=== PATIENT | male | born 1935 | race Caucasian/White ===

== ENCOUNTER 2021-06-06 20:07 | Inpatient (IN) ==
[2021-06-06 20:45] LABS: PCO2 Arterial 35 mmHg (35-45)
[2021-06-06 21:10] LABS: Hematocrit 36 % (42-52); Hemoglobin 11.7 g/dL (14.0-18.0); Mean Corpuscular HGB Conc 33 g/dL (31-36); Mean Corpuscular Hemoglobin 26 pg (27-31); Mean Corpuscular Volume 80 fL (80-94); Mean Platelet Volume 7.7 fL (7.4-10.4); Platelet Count 598 10^3/uL (150-450); Red Blood Count 4.44 10^6 /uL (4.18-5.48); Red Cell Distribution Width 18 % (10-15); White Blood Count 24.9 10^3/uL (3.5-10.8)
[2021-06-06 21:21] LABS: PO2 Arterial 59 mmHg (80-100)
[2021-06-06 21:27] LABS: ALT 25 U/L (7-52); AST 33 U/L (13-39); Albumin 3.5 g/dL (3.2-5.2); Albumin/Globulin Ratio 0.8 (1-3); Alkaline Phosphatase 87 U/L (35-149); Anion Gap 11 mmol/L (2-11); Blood Urea Nitrogen 31 mg/dL (6-24); CO2 Carbon Dioxide 27 mmol/L (22-32); Calcium 9.9 mg/dL (8.6-10.3); Chloride 98 mmol/L (101-111); Globulin 4.6 g/dL (2-4); Glucose 119 mg/dL (70-100); Sodium 136 mmol/L (135-145); Total Protein 8.1 g/dL (6.4-8.9)
[2021-06-06 21:30] LABS: Activated Partial Thrombo Time 29.3 seconds (26.0-38.0); INR 1.34 (0.86-1.15)
[2021-06-06] MEDS ORDERED: Vancomycin 1,000 MG in NS 0.9% 250 ml 250 ML IVPB ONE ×2 (21:35→23:40)
[2021-06-06] MEDS ORDERED: Piperacillin/Tazobac ADVAN 3.375 GM in NS 0.9% 100 ml BAG 100 ML IV ONE ×2 (21:35→23:40)
[2021-06-06] MEDS ORDERED: Lactated Ringers 1000 ml BAG 1,000 ML IV ONE (21:36)
[2021-06-06 21:43] LABS: Influenza A Molecular Negative (Negative); Influenza B Molecular Negative (Negative); Rapid COVID-19 Molecular Undetected (Undetected)
[2021-06-06] MEDS ORDERED: Lactated Ringers 1000 ml BAG IV.FLUID IV ONE (21:44)
[2021-06-06 21:48] LABS: ABS Lymphocytes 0.8 10^3/ul (1.0-4.8); ABS Monocytes 0.9 10^3/ul (0-0.8); ABS Neutrophils 23.2 10^3/ul (1.5-7.7); Eosinophil % 0.1 %; Lymphocyte % 3.2 %
[2021-06-06 21:53] LABS: Troponin I 0.06 ng/mL (<0.03)
[2021-06-06] MEDS ORDERED: Vancomycin per Pharmacy 1 EA NOTE FOLLOW UP SCH (23:45)
[2021-06-06] MEDS ORDERED: Zosyn per Pharmacy NOTE FOLLOW UP SCH (23:45)
[2021-06-07] MEDS ORDERED: Albuterol HFA INHALER 8 gm MDI INH PRN (01:31)
[2021-06-07 01:53] LABS: Blood Urea Nitrogen 29 mg/dL (6-24)
[2021-06-07 02:07] LABS: Troponin I 0.12 ng/mL (<0.03)
[2021-06-07] MEDS: ZOSYN 3.375 GM Q8H per EXTENDED INFUSION IV SCH ×3 (03:16→18:31)
[2021-06-07 04:51] LABS: Hematocrit 28 % (42-52); Hemoglobin 9.4 g/dL (14.0-18.0); Mean Corpuscular HGB Conc 34 g/dL (31-36); Mean Corpuscular Hemoglobin 27 pg (27-31); Mean Corpuscular Volume 79 fL (80-94); Mean Platelet Volume 7.7 fL (7.4-10.4); Platelet Count 479 10^3/uL (150-450); Red Blood Count 3.51 10^6 /uL (4.18-5.48); Red Cell Distribution Width 18 % (10-15); White Blood Count 33.3 10^3/uL (3.5-10.8)
[2021-06-07 04:58] LABS: ABS Basophils 0.3 10^3/ul (0-0.2); ABS Lymphocytes 0.8 10^3/ul (1.0-4.8); ABS Monocytes 1.1 10^3/ul (0-0.8); ABS Neutrophils 31.1 10^3/ul (1.5-7.7); Lymphocyte % 2.4 %
[2021-06-07 05:49] LABS: Troponin I 0.08 ng/mL (<0.03)
[2021-06-07 05:52] LABS: INR 1.48 (0.86-1.15)
[2021-06-07 06:01] LABS: Calcium 8.8 mg/dL (8.6-10.3); Potassium 4.1 mmol/L (3.5-5.0)
[2021-06-07] MEDS: Heparin 5000 UNITS/ML 1 mL VIAL SUBCUT SCH ×3 (06:52→22:14)
[2021-06-07 07:42] LABS: Urine Appearance Turbid; Urine Bilirubin Negative (Negative); Urine Blood 1+ (Negative); Urine Color Amber; Urine Glucose Negative (Negative); Urine Ketones Negative (Negative); Urine Nitrite Positive (Negative); Urine Protein 1+(30 mg/dL) (Negative); Urine Specific Gravity 1.025 (1.002-1.030); Urine Urobilinogen Negative (Negative)
[2021-06-07 07:46] LABS: Urine Amorphous Crystals Present (Absent); Urine Bacteria 1+ (Absent); Urine Red Blood Cell 3+(>10/hpf) (Absent); Urine White Blood Cell 3+(>20/hpf) (Absent)
[2021-06-07] MEDS ORDERED: Linezolid 600 MG IVPREMIX(*) 600 MG/300 ML BAG IVPB SCH (09:00)
[2021-06-07] MEDS ORDERED: methylPREDNISolone SOD 40 mg/ml 1 ml VIAL IV SCH (10:00)
[2021-06-07] MEDS ORDERED: Lactated Ringers 500 ml BAG 500 ML IV ONE (15:53)
[2021-06-07] MEDS ORDERED: NS 0.9% 500 ml BAG 500 ML IV ONE (18:22)
[2021-06-07] MEDS: Linezolid 600 MG IVPREMIX(*) 600 MG/300 ML BAG IVPB SCH (23:43)
[2021-06-08] MEDS: ZOSYN 3.375 GM Q8H per EXTENDED INFUSION IV SCH ×3 (01:15→16:44)
[2021-06-08 05:33] LABS: ABS Basophils 0.2 10^3/ul (0-0.2); ABS Lymphocytes 0.8 10^3/ul (1.0-4.8); ABS Monocytes 0.8 10^3/ul (0-0.8); ABS Neutrophils 13.2 10^3/ul (1.5-7.7); Hematocrit 30 % (42-52); Hemoglobin 9.7 g/dL (14.0-18.0); Mean Corpuscular HGB Conc 33 g/dL (31-36); Mean Corpuscular Hemoglobin 26 pg (27-31); Mean Corpuscular Volume 80 fL (80-94); Mean Platelet Volume 7.9 fL (7.4-10.4); Platelet Count 512 10^3/uL (150-450); Red Blood Count 3.69 10^6 /uL (4.18-5.48); Red Cell Distribution Width 18 % (10-15); White Blood Count 14.9 10^3/uL (3.5-10.8)
[2021-06-08 05:51] LABS: Calcium 8.8 mg/dL (8.6-10.3); Magnesium 2.1 mg/dL (1.9-2.7); Potassium 4.3 mmol/L (3.5-5.0)
[2021-06-08] MEDS: Heparin 5000 UNITS/ML 1 mL VIAL SUBCUT SCH (05:56)
[2021-06-08] MEDS ORDERED: Levothyroxine 100 MCG/5 ML VIAL IV SCH (06:00)
[2021-06-08] MEDS ORDERED: methylPREDNISolone SOD 40 mg/ml 1 ml VIAL IV SCH (09:00)
[2021-06-08] MEDS: Enoxaparin 40 MG/0.4 ML SYR SUBCUT SCH (10:00)
[2021-06-08] MEDS: Linezolid 600 MG IVPREMIX(*) 600 MG/300 ML BAG IVPB SCH ×2 (11:29→11:53)
[2021-06-09] MEDS: ZOSYN 3.375 GM Q8H per EXTENDED INFUSION IV SCH ×3 (02:42→18:23)
[2021-06-09 06:38] LABS: ABS Lymphocytes 0.6 10^3/ul (1.0-4.8); ABS Monocytes 0.8 10^3/ul (0-0.8); ABS Neutrophils 5.8 10^3/ul (1.5-7.7); Eosinophil % 0.1 %; Hematocrit 27 % (42-52); Hemoglobin 8.9 g/dL (14.0-18.0); Lymphocyte % 8.8 %; Mean Corpuscular HGB Conc 33 g/dL (31-36); Mean Corpuscular Hemoglobin 27 pg (27-31); Mean Corpuscular Volume 80 fL (80-94); Mean Platelet Volume 7.7 fL (7.4-10.4); Platelet Count 476 10^3/uL (150-450); Red Blood Count 3.34 10^6 /uL (4.18-5.48); Red Cell Distribution Width 17 % (10-15); White Blood Count 7.2 10^3/uL (3.5-10.8)
[2021-06-09 07:02] LABS: Calcium 8.3 mg/dL (8.6-10.3); Potassium 3.6 mmol/L (3.5-5.0)
[2021-06-09] MEDS: Enoxaparin 40 MG/0.4 ML SYR SUBCUT SCH (09:27)
[2021-06-10] MEDS: ZOSYN 3.375 GM Q8H per EXTENDED INFUSION IV SCH ×3 (01:43→18:02)
[2021-06-10 08:24] LABS: ABS Eosinophils 0.1 10^3/ul (0-0.6); ABS Lymphocytes 0.9 10^3/ul (1.0-4.8); ABS Monocytes 0.7 10^3/ul (0-0.8); ABS Neutrophils 5.6 10^3/ul (1.5-7.7); Eosinophil % 0.7 %; Hematocrit 30 % (42-52); Hemoglobin 9.9 g/dL (14.0-18.0); Lymphocyte % 12.3 %; Mean Corpuscular HGB Conc 33 g/dL (31-36); Mean Corpuscular Hemoglobin 26 pg (27-31); Mean Corpuscular Volume 80 fL (80-94); Mean Platelet Volume 7.5 fL (7.4-10.4); Platelet Count 541 10^3/uL (150-450); Red Blood Count 3.77 10^6 /uL (4.18-5.48); Red Cell Distribution Width 17 % (10-15); White Blood Count 7.2 10^3/uL (3.5-10.8)
[2021-06-10 08:40] LABS: Calcium 8.5 mg/dL (8.6-10.3); Magnesium 2.1 mg/dL (1.9-2.7); Potassium 4.5 mmol/L (3.5-5.0)
[2021-06-10] MEDS: Enoxaparin 40 MG/0.4 ML SYR SUBCUT SCH (09:13)
[2021-06-11] MEDS: ZOSYN 3.375 GM Q8H per EXTENDED INFUSION IV SCH ×2 (01:37→08:53)
[2021-06-11] MEDS: Enoxaparin 40 MG/0.4 ML SYR SUBCUT SCH (08:53)
[2021-06-11] MEDS ORDERED: Amoxicillin/Clavul 875/125 TAB (Augmentin 875 tab) PO SCH (12:00)
[2021-06-11 12:48] VITALS: BP 104/57
[2021-06-11 14:01] LABS: Rapid COVID-19 Molecular Undetected (Undetected)
[2021-06-11] MEDS ORDERED: Amoxicillin/Clavul ORALSYR 80 MG/ML (400 MG/5 ML) PO SCH (21:00)
== END 2021-06-11 15:00 | DRG 871 ==
LOC: ED 20:07 → ICU 23:24 → SUATTDRO 23:24 → ICU 06-07 02:44 → MED 06-08 07:20
PROVIDERS: ADMIT Internal Medicine; ATTEND Internal Medicine

== ENCOUNTER 2021-06-13 11:31 | Observation (INO) ==
[2021-06-13] MEDS ORDERED: Lactated Ringers 500 ml BAG 500 ML IV ONE (11:47)
[2021-06-13 12:03] LABS: Hematocrit 34 % (42-52); Hemoglobin 11.1 g/dL (14.0-18.0); Mean Corpuscular HGB Conc 33 g/dL (31-36); Mean Corpuscular Hemoglobin 26 pg (27-31); Mean Corpuscular Volume 80 fL (80-94); Mean Platelet Volume 7.7 fL (7.4-10.4); Platelet Count 584 10^3/uL (150-450); Red Blood Count 4.27 10^6 /uL (4.18-5.48); Red Cell Distribution Width 18 % (10-15); White Blood Count 22.5 10^3/uL (3.5-10.8)
[2021-06-13 12:21] LABS: Albumin 2.8 g/dL (3.2-5.2); Albumin/Globulin Ratio 0.8 (1-3); Calcium 8.5 mg/dL (8.6-10.3); Globulin 3.7 g/dL (2-4); Potassium 4.1 mmol/L (3.5-5.0); Total Bilirubin 0.4 mg/dL (0.2-1.0); Total Protein 6.5 g/dL (6.4-8.9)
[2021-06-13 12:24] LABS: Troponin I 0.02 ng/mL (<0.03)
[2021-06-13 12:36] LABS: ABS Lymphocytes 0.7 10^3/ul (1.0-4.8); ABS Monocytes 0.8 10^3/ul (0-0.8); ABS Neutrophils 20.9 10^3/ul (1.5-7.7); Eosinophil % 0.2 %; Lymphocyte % 3.3 %
[2021-06-13] MEDS ORDERED: Piperacillin/Tazobac ADVAN 3.375 GM in NS 0.9% 100 ml BAG 100 ML IVPB ONE (13:03)
[2021-06-13] MEDS ORDERED: Lactated Ringers 1000 ml BAG 1,000 ML IV SCH (14:00)
[2021-06-13] MEDS ORDERED: Magnesium Hydroxide LIQ 30 ML UDC PO PRN (15:07)
[2021-06-13] MEDS ORDERED: Albuterol HFA INHALER 8 gm MDI INH PRN (15:07)
[2021-06-13 15:46] LABS: Rapid COVID-19 Molecular Undetected (Undetected)
[2021-06-13 18:29] LABS: Troponin I 0.15 ng/mL (<0.03)
[2021-06-13] MEDS: Amoxicillin/Clavul 875/125 TAB (Augmentin 875 tab) PO SCH (21:29)
[2021-06-13] MEDS: Heparin 5000 UNITS/ML 1 mL VIAL SUBCUT SCH (21:32)
[2021-06-13 23:58] LABS: Troponin I 0.03 ng/mL (<0.03)
[2021-06-14] MEDS: Heparin 5000 UNITS/ML 1 mL VIAL SUBCUT SCH ×3 (05:56→22:28)
[2021-06-14] MEDS: Amoxicillin/Clavul 875/125 TAB (Augmentin 875 tab) PO SCH ×2 (09:17→20:29)
[2021-06-14] MEDS: CMCS:Meloxicam 7.5 mg TAB (NF) PO SCH (09:17)
[2021-06-15] MEDS: Heparin 5000 UNITS/ML 1 mL VIAL SUBCUT SCH ×2 (05:31→13:28)
[2021-06-15 06:40] LABS: ABS Eosinophils 0.1 10^3/ul (0-0.6); ABS Lymphocytes 1.1 10^3/ul (1.0-4.8); ABS Monocytes 0.7 10^3/ul (0-0.8); ABS Neutrophils 6.1 10^3/ul (1.5-7.7); Hematocrit 29 % (42-52); Hemoglobin 9.5 g/dL (14.0-18.0); Lymphocyte % 13.6 %; Mean Corpuscular HGB Conc 33 g/dL (31-36); Mean Corpuscular Hemoglobin 26 pg (27-31); Mean Corpuscular Volume 80 fL (80-94); Mean Platelet Volume 7.7 fL (7.4-10.4); Platelet Count 490 10^3/uL (150-450); Red Blood Count 3.61 10^6 /uL (4.18-5.48); Red Cell Distribution Width 18 % (10-15); White Blood Count 8.1 10^3/uL (3.5-10.8)
[2021-06-15 07:06] LABS: Calcium 8.1 mg/dL (8.6-10.3); Potassium 3.9 mmol/L (3.5-5.0)
[2021-06-15] MEDS: CMCS:Meloxicam 7.5 mg TAB (NF) PO SCH (09:18)
[2021-06-15] MEDS: Amoxicillin/Clavul 875/125 TAB (Augmentin 875 tab) PO SCH (09:18)
[2021-06-15 11:55] VITALS: BP 114/56
== END 2021-06-15 14:25 ==
LOC: ED 11:31 → EDHOLD 11:31 → SUATTDRO 15:01 → MED 17:18
PROVIDERS: ADMIT Internal Medicine; ATTEND Internal Medicine